=== PATIENT | female | born 1995 | race Caucasian/White ===

== ENCOUNTER 2016-12-14 01:08 | Emergency (ER) | payer SELFPAY ==
[~2016-12-14] VITALS: Wt 61.5 kg
== END 2016-12-14 02:30 | disposition left against medical advice (07) ==
LOC: FTE 01:08 → E/R 02:30
DX: Z53.21 Procedure and treatment not carried out due to patient leaving prior to being seen by health care provider (principal)

== ENCOUNTER 2016-12-28 00:20 | Emergency (ER) | payer SELFPAY ==
[~2016-12-28] VITALS: Ht 160 cm; Wt 61.0 kg
[2016-12-28 00:30] VITALS: Ht 160 cm; Wt 61.0 kg
== END 2016-12-28 02:13 | disposition left against medical advice (07) ==
LOC: FTE 00:20
DX: Z53.21 Procedure and treatment not carried out due to patient leaving prior to being seen by health care provider (principal)